=== PATIENT | female | born 1980 | race Caucasian/White ===

== ENCOUNTER 2020-05-22 08:15 | Outpatient (CLI) | payer OTHER, SELFPAY ==
[2020-05-22 09:37] LABS: Basophils Percent Auto 0.9 % (0.2-1.2); Eosinophils Absolute Auto 0.1 K/mm3 (0-0.3); Eosinophils Percent Auto 1.1 % (0-4.4); Hematocrit 39.3 % (37.0-47.0); Hemoglobin 12.7 g/dL (12.0-15.0); Immature Granulocyte Absolute 0.01 K/mm3 (0.00-0.031); Immature Granulocyte Percent A 0.2 % (0-0.5); Lymphocytes Absolute Auto 1.36 K/mm3 (0.9-3.2); Lymphocytes Percent Auto 30.3 % (18.3-44.2); Mean Corpuscular HGB Conc 32.3 g/dl (32-36); Mean Corpuscular Hemoglobin 25.6 pg (26-34); Mean Corpuscular Volume 79.1 fl (80-100); Mean Platelet Volume 10.2 fl (7.4-10.4); Monocytes Absolute Auto 0.5 K/mm3 (0.1-0.6); Monocytes Percent Auto 10.2 % (2.6-8.5); Neutrophils Absolute Auto 2.6 K/mm3 (1.3-6.7); Neutrophils Percent Auto 57.3 % (45.5-73.1); Platelet Count Result 261 k/mm3 (150-375); Red Blood Count 4.97 M/mm3 (4.2-5.4); Red Cell Distribution Width 13.3 % (11.5-14.5); White Blood Count 4.5 K/mm3 (4.5-10.0)
[2020-05-22 09:49] LABS: Alanine Aminotransferase 12 U/L (4-35); Albumin Level 4.1 g/dL (3.5-5.1); Alkaline Phosphatase 41 U/L (38-126); Anion Gap 5 mmol/L (8-16); Aspartate Amino Transferase 21 U/L (14-36); Bilirubin,Total 0.2 mg/dL (0.2-1.3); Blood Urea Nitrogen 11 mg/dL (7-17); Calcium 8.9 mg/dL (8.4-10.2); Carbon Dioxide 28 mmol/L (22-30); Chloride 106 mmol/L (98-107); Cholesterol 187 mg/dL (0-200); Estimated Glomerular Filt Rate > 60; Glucose 89 mg/dL (65-105); HDL Direct 86 mg/dL; Potassium 3.9 mmol/L (3.4-5.0); Sodium 139 mmol/L (137-145); Triglycerides 49 mg/dL (<150)
[2020-05-22 10:00] LABS: LDL Cholesterol Direct 80 mg/dL
== END 2020-05-22 08:16 | disposition home or self-care (01) ==
PROVIDERS: PCP Internal Medicine; Visit Provider Clinical Nurse Specialist
DX: Z13.228 Encounter for screening for other metabolic disorders (principal); Z13.220 Encounter for screening for lipoid disorders
CPT/HCPCS: 36415; 80053; 80061; 85025

== ENCOUNTER → 2021-10-17 12:32 | Outpatient (CLI) | payer OTHER, SELFPAY ==
--- NOTE | ~2021-10-17 | MM_ITS ---
EXAMINATION: MM screening aditya BI w alfonso HISTORY: Screening mammogram TECHNIQUE: Craniocaudal and mediolateral oblique 3-D tomosynthesis images were obtained and synthetic 2-D images were generated. CAD analysis was submitted and interpreted. COMPARISON: No prior mammogram is available for comparison at this institution. BREAST PARENCHYMAL COMPOSITION: There are scattered areas of fibroglandular density. FINDINGS: There is no evidence of suspicious mass, calcification, or architectural distortion to sugg est malignancy in either breast. There has been no suspicious interval change. IMPRESSION: 1. No mammographic evidence of malignancy. 2. Recommend routine screening mammography in one year. BI-RADS Category 1: Negative Reviewed, dictated and finalized at location A.
== END ==
PROVIDERS: PCP Internal Medicine; Visit Provider Obstetrics & Gynecology
DX: Z12.31 Encounter for screening mammogram for malignant neoplasm of breast (principal)
CPT/HCPCS: 77063; 77067

== ENCOUNTER 2022-11-11 18:25 | Emergency (ER) | payer OTHER, SELFPAY ==
--- NOTE | 2022-11-11 18:31 | ED.FEMALEGU ---
HPI - Female Genitourinary General Chief complaint: Urogenital-Female Stated complaint: Female Urogenital Source: patient and RN notes reviewed History of Present Illness HPI Narrative: 42 yo F presents to urgent care with complaints of urinary burning, urgency, and frequency. Pt states she also has uterus or pelvic cramping following voiding. Pt reports chills and mild body aches. States these symptoms started this morning or last night. Denies any known fevers, vomiting, back pain, or flank pain. Related Data Allergies Allergy/AdvReac Type Severity Reaction Status Date / Time No Known Allergies Allergy Verified 11/11/22 18:28 Review of Systems Review of Systems: Pertinent positives and pertinent negatives per HPI. [facility] Surgical History Surgical History History of tonsillectomy Family History Family History Father Hypertension Mother Hypertension Social History Social History (Updated 10/12/22 @ 08:07 by Malena Carver CMA) Smoking status: Never smoker Alcohol intake: current Substance use: never Substance use type: does not use Lack of Transportation: No Lack of Food: Never True Current Housing: I Have Housing Concerned About Future Housing: No Difficulty Paying Gas/Electric Bills: No Difficulty Paying for Meds: No Currently Unemployed: No Education: Master's Degree or Higher Difficulty w/ Childcare or Family Care: No Comments At the time of my signature, I reviewed and agree with the nursing past medical, surgical, social, and family history. There is no relevant family history pertinent to the patient complaint. Exam Narrative: GENERAL: This is a well-nourished, well-developed patient, in no apparent distress. HEAD: normocephalic, atraumatic. EYES: Sclera clear/white. Vision is grossly intact. EARS: External ears normal, auditory canals clear and without drainage. Hearing grossly intact. NOSE: External nose normal with no obvious nasal discharge, nares without redness, no rhinorrhea. THROAT: Mucous membranes moist, posterior pharynx clear. NECK: Neck supple, non-tender without lymphadenopathy, masses or thyromegaly. CARDIOVASCULAR: Regular rate and rhythm without murmurs, gallops, or rubs. RESPIRATORY: Clear to auscultation. Breath sounds equal bilaterally. No wheezes, rales, or rhonchi. GASTROINTESTINAL: Abdomen soft, non-tender, nondistended. Bowel sounds are active. No hepato-splenomegaly, or palpable masses. No guarding. SKIN: warm, intact with no suspicious lesions or rash, good texture and turgor. NEURO: awake, alert, and oriented to person, place and time. There were no obvious focal neurologic abnormalities. BACK: Nontender without deformity or crepitus. No flank tenderness. Course Course Level of Care: Express Care Visit Vital Signs Vital signs: Vital Signs Temperature 97.7 F 11/11/22 18:34 Pulse Rate 88 11/11/22 18:34 Respiratory Rate 16 11/11/22 18:34 Blood Pressure 120/63 11/11/22 18:34 Pulse Oximetry 99 11/11/22 18:34 Oxygen Delivery Room Air 11/11/22 18:34 Temperature 97.7 F 11/11/22 18:34 Pulse Rate 88 11/11/22 18:34 Respiratory Rate 16 11/11/22 18:34 Blood Pressure 120/63 11/11/22 18:34 Pulse Oximetry 99 11/11/22 18:34 Oxygen Delivery Room Air 11/11/22 18:34 Reviewed MDM - Female Genitourinary MDM Narrative Medical decision making narrative: We will send a urine culture off to the lab; if the culture identifies an organism that the prescribed antibiotic will not treat, you will receive a phone call from an urgent care staff member and an appropriate antibiotic will be prescribed. -Your symptoms should begin to improve within a day of starting antibiotics. But you should finish all the antibiotic pills you get. Otherwise your infection might come back. -Also recommend: drink more flu
[2022-11-11 18:34] VITALS: BP 120/63; PULSE 88; RESP 16; TEMP 36.5; O2SAT 99
== END 2022-11-11 18:52 | disposition home or self-care (01) ==
PROVIDERS: Emergency Provider Nurse Practitioner Family; PCP Internal Medicine
DX: N30.01 Acute cystitis with hematuria (principal)
CPT/HCPCS: 81003; 81025; 87086; 87088; 99213; G0463

== ENCOUNTER 2023-04-11 15:21 | Outpatient (CLI) | payer OTHER, SELFPAY ==
--- NOTE | ~2023-04-11 | MM_ITS ---
EXAMINATION: MM screening aditya BI w alfonso HISTORY: Screening mammogram TECHNIQUE: Craniocaudal and mediolateral oblique 3-D tomosynthesis images were obtained and synthetic 2-D images were generated. CAD analysis was submitted and interpreted. COMPARISON: 10/17/2021 bilateral screening mammogram BREAST PARENCHYMAL COMPOSITION: FINDINGS: There is no evidence of suspicious mass, calcification, or architectural distortion to sugg est malignancy in either breast. There has been no suspicious interval change. IMPRESSION: 1. No mammographic evidence of malignancy. 2. Recommend routine screening mammography in one year. BI-RADS Category 1: Negative Reviewed, dictated and finalized at location A. [employer]
== END 2023-04-11 15:22 ==
LOC: MICIMG 15:22
PROVIDERS: PCP Obstetrics & Gynecology; Visit Provider Obstetrics & Gynecology
DX: Z12.31 Encounter for screening mammogram for malignant neoplasm of breast (principal)
CPT/HCPCS: 77063; 77067

== ENCOUNTER 2024-01-08 08:53 | Outpatient (CLI) | payer OTHER, SELFPAY ==
--- NOTE | ~2024-01-08 | MR_ITS ---
MRI of the brain Clinical History: Headache Technique: Axial and sagittal T1-weighted images were acquired. These were followed by axial T2-weigh diana, diffusion weighted, gradient, and FLAIR images. Following intravenous administration of 18 cc Mu ltiHance gadolinium, T1-weighted fat-sat imaging was performed in the axial and coronal planes. Findings: There is no abnormal signal in the brain parenchyma. No acute infarct, internal hemorrhage, or mass lesion identified. Ventricles and subarachnoid spaces are unremarkable. Orbits are unremarkable. Paranasal sinuses and m astoid air cells are clear. Major intracranial flow voids appear intact. Sagittal midline structures are intact. No abnormal postcontrast enhancement identified. IMPRESSION: Normal exam. Reviewed, dictated and finalized at location M. [employer] IMPRESSION: Normal exam.
== END 2024-01-08 08:54 | disposition home or self-care (01) ==
LOC: MICIMG 08:54
PROVIDERS: PCP Internal Medicine; Visit Provider Clinical Nurse Specialist
DX: R51.9 Headache, unspecified (principal); R20.0 Anesthesia of skin; R20.2 Paresthesia of skin
CPT/HCPCS: 70553; A9577

== ENCOUNTER 2024-04-14 10:05 | Outpatient (CLI) | payer BC, SELFPAY ==
--- NOTE | ~2024-04-14 | MM_ITS ---
EXAMINATION: MM screening aditya BI w alfonso HISTORY: Screening mammogram TECHNIQUE: Craniocaudal and mediolateral oblique 3-D tomosynthesis images were obtained and synthetic 2-D images were generated. CAD analysis was submitted and interpreted. COMPARISON: 04/11/2023, 10/17/2021 BREAST PARENCHYMAL COMPOSITION:Not Dense. There are scattered areas of fibroglandular density. FINDINGS: No suspicious mass, calcification, or architectural distortion are identified in either denise ast to suggest malignancy. There has been no suspicious interval change. IMPRESSION: No mammographic evidence of malignancy. Recommend routine screening mammography in one year. BI-RADS Category 1: Negative Reviewed, dictated and finalized at location .
== END 2024-04-14 10:06 | disposition home or self-care (01) ==
LOC: MICIMG 10:06
PROVIDERS: PCP Internal Medicine; Visit Provider Obstetrics & Gynecology
DX: Z12.31 Encounter for screening mammogram for malignant neoplasm of breast (principal)
CPT/HCPCS: 77063; 77067